=== PATIENT | male | born 1980 | race Asian ===

== ENCOUNTER → 2025-06-22 14:17 | Outpatient (REF) | payer OTHER, SELFPAY | LOC: HWRAD 14:17 | PROVIDERS: ATTENDING PHYSICIAN Specialist; FAMILY PHYSICIAN Internal Medicine | DX: R35.0 Frequency of micturition (principal) | CPT/HCPCS: 76770 ==

== ENCOUNTER 2025-07-02 06:30 | Day surgery (SDC) | payer OTHER, SELFPAY ==
[2025-07-02] VITALS (7 sets, daily range): BP systolic 126–137; BP diastolic 84–91; BMI 24.7
== END 2025-07-02 12:45 | disposition home or self-care (01) ==
LOC: SDS 06:30
PROVIDERS: ATTENDING PHYSICIAN Specialist
DX: N35.919 Unspecified urethral stricture, male, unspecified site (principal); N21.0 Calculus in bladder; N32.89 Other specified disorders of bladder
CPT/HCPCS: 51050; 52281; 74018; 76000